=== PATIENT | female | born 1950 | race Caucasian/White ===

== ENCOUNTER 2023-10-01 08:50 | Day surgery (SDC) | payer MEDICAID ==
[~2023-10-01] VITALS: Ht 160 cm; Wt 53.5 kg
[2023-10-01] MEDS ORDERED: MIDAZOLAM HCL 5 MG/5 ML VIAL ONE (10:34)
[2023-10-01] MEDS ORDERED: fentaNYL CITRATE/PF 100 MCG/2 ML AMP ONE (10:34)
[2023-10-01 15:02] VITALS: BP_SYST 103; PULSE 78; RESP 17
== END 2023-10-01 11:57 | disposition home or self-care (01) ==
LOC: SDS 08:50 → SMU 08:51 → SDS 11:57
PROVIDERS: ATTEND Internal Medicine
DX: Z12.11 Encounter for screening for malignant neoplasm of colon (principal); D12.3 Benign neoplasm of transverse colon; D12.4 Benign neoplasm of descending colon; D12.5 Benign neoplasm of sigmoid colon; K57.30 Diverticulosis of large intestine without perforation or abscess without bleeding; K64.8 Other hemorrhoids; I10 Essential (primary) hypertension; E11.9 Type 2 diabetes mellitus without complications; Z79.82 Long term (current) use of aspirin; Z79.899 Other long term (current) drug therapy
CPT/HCPCS: 45385; 99152; 82962; 88305; G0378; J2250; J3010; 45384